=== PATIENT | female | born 1940 ===

== ENCOUNTER 2016-11-23 11:18 | Emergency (ER) | payer MEDICARE, MEDICAID ==
[2016-11-23 11:28] VITALS: O2SAT 99
[2016-11-23 11:31] VITALS: TEMP 98.6
[2016-11-23 12:24] LABS: HEMATOCRIT 38.6 % (34.0-47.0); MEAN CELL VOLUME 90.1 fl (81.0-99.0); MEAN CORPUSCULAR HEMOGLOBIN 29.5 pg (27.0-31.0); MEAN CORPUSCULAR HGB CONC 32.7 g/dL (33.0-37.0); RED CELL DISTRIBUTION WIDTH 15.3 % (11.5-14.5); WHITE BLOOD COUNT 11.9 K/uL (4.8-10.8)
[2016-11-23 12:36] LABS: CALCIUM 9.4 mg/dL (8.4-10.2); POTASSIUM 4.7 MMOL/L (3.6-5.0)
--- NOTE | 2016-11-23 12:40 | RAD ---
PROCEDURE: Left shoulder dated 11/23/2016 HISTORY: Shoulder pain COMPARISON: Comparison made with prior shoulder radiographs left shoulder radiographs 10/25/2016 TECHNIQUE: Single AP view of the left shoulder performed. FINDINGS: No evidence of acute displaced fracture nor dislocation. The osseous structures appear intact. Minimal degenerative changes left acromioclavicular and glenohumeral joints. Note made of left apical pleural thickening. IMPRESSION: No acute fracture seen. Minor DJD as above.
--- NOTE | 2016-11-23 13:23 | RAD ---
PROCEDURE: CHEST RADIOGRAPH, 1 VIEW HISTORY: chest pain radiating to shoulder COMPARISON: 01/08/2015. FINDINGS: LUNGS: The lungs are well inflated and clear. PLEURA: No pneumothorax or pleural fluid seen. CARDIOVASCULAR: The heart is normal in size. Atherosclerotic aortic arch calcifications are present. OSSEOUS STRUCTURES: No significant abnormalities. VISUALIZED UPPER ABDOMEN: Normal. OTHER FINDINGS: None. IMPRESSION: No active pulmonary disease.
--- NOTE | 2016-11-23 13:51 | ED PDOC ---
HPI: General Adult Time Seen by Provider: 11/23/16 11:46 Chief Complaint (Nursing): Upper Extremity Problem/Injury Chief Complaint (Provider): left shoulder pain History Per: Family (son) History/Exam Limitations: language barrier, other (dementia) Onset/Duration Of Symptoms: Intermittent Episodes Have you had recent travel within the past 21 days to any of the following countries: [place], [place], [place] or [place]?: No Current Symptoms Are (Timing): Better Severity: None Pain Scale Rating Of: 0 Additional Complaint(s): 75 y/o female with documented pmhx of dementia, DM, HTN, COPD, seen at bedside in the ED for left shoulder pain. Patient was brought by EMS to the ED for pain radiating to left shoulder. Patient is unable to give thorough past medical history or answer questions pertaining to physical examination. Patient is able to state her name but unable to answer questions as to what day of the week it is, what month it is, where she came from, etc. Patient states that she is unaware of why she was brought to the ED. Patient denies any pain in her shoulders. Patient denies any falls, or trauma to the area. Patient denies any other complaints at this time. She denies n/f/v/c/d/sob. Patient's son arrived at bedside and states that his mother has dementia and she is not in any current pain or distress. Pmhx: DM, HTN, COPD, Dementia Pshx: none FH: unknown SH: 1/2 ppd smoker x 30 years, quit 3 weeks ago, denies etoh use All: NKDA Past Medical History Vital Signs: Last Vital Signs Temp 98.6 F 11/23/16 11:31 Pulse 68 11/23/16 13:45 Resp 14 11/23/16 13:45 BP 124/78 11/23/16 13:45 Pulse Ox 99 11/23/16 14:26 - Medical History PMH: COPD, Diabetes, HTN, Migraine Denies: Hepatitis, HIV, Seizures, Sexually Transmitted Disease - Family History Family History: States: Unknown Family Hx - Home Medications Home Medications: Ambulatory Orders Medication Instructions Recorded Naproxen [Naprosyn Tab] 250 mg PO BID #14 tab 11/23/16 - Allergies Allergies/Adverse Reactions: Allergies Allergy/AdvReac Type Severity Reaction Status Date / Time No Known Allergies Allergy Verified 01/30/15 15:52 Review of Systems Constitutional: Negative for: Fever, Chills, Sweats, Weakness Cardiovascular: Negative for: Chest Pain, Palpitations, Orthopnea Respiratory: Negative for: Cough, Shortness of Breath Gastrointestinal: Negative for: Nausea, Vomiting, Abdominal Pain, Diarrhea, Constipation Musculoskeletal: Positive for: Shoulder Pain, Back Pain (son states that she sometimes complains of shoulder and back pain) Neurological: Positive for: Confusion, Altered Mental Status (dementia). Negative for: Weakness Physical Exam - Physical Exam Appears: Positive for: Well, Non-toxic, No Acute Distress Head Exam: Positive for: NORMAL INSPECTION Skin: Positive for: Normal Color Eye Exam: Positive for: Normal appearance, EOMI, PERRL Neck: Positive for: Normal, Painless ROM Cardiovascular/Chest: Positive for: Regular Rate, Rhythm, Chest Non Tender Respiratory: Positive for: Decreased Breath Sounds Gastrointestinal/Abdominal: Positive for: Normal Exam. Negative for: Soft, Tenderness, Distended Back: Positive for: Normal Inspection Neurologic/Psych: Positive for: Alert, Other (dementia) - Laboratory Results Result Diagrams: 11/23/16 12:20 11/23/16 12:20 - ECG O2 Sat by Pulse Oximetry: 99 Medical Decision Making Medical Decision Making: Patient seen and evaluated at bedside Vital signs stable Plan: Chest X ray- no active pulmonary disease L shoulder X ray- no acute fracture or dislocation, degenerative arthritic changes noted CBC BMP EKG Treatment: discussed treatment plan with son, son accepts full responsibility to take patient home, patient to follow up with PCP patient to be discharged with naprosyn PO prn shoulder pain Disposition - Clinical Impression Clinical Impression: Dementia, Arthritis - Disposition Disposition Time: 14:29 Condition: GOOD Additional Instructions: See primary doctor for followup. Discharged to care of son for safety and monitoring at home. Prescriptions: Naproxen [Naprosyn Tab] 250 mg PO BID #14 tab Instructions: Naproxen (By mouth), Dementia (ED), Arthralgia (ED) Forms: [employer] ([place]) Print Language: CONGOLESE
[2016-11-23 13:53] VITALS: BP 124/78; PULSE 68; RESP 14
== END 2016-11-23 13:53 | disposition home or self-care (01) ==
LOC: H.ER 11:18
DX: M19.012 Primary osteoarthritis, left shoulder (principal); F03.90 Unspecified dementia, unspecified severity, without behavioral disturbance, psychotic disturbance, mood disturbance, and anxiety; E11.9 Type 2 diabetes mellitus without complications; I10 Essential (primary) hypertension; J44.9 Chronic obstructive pulmonary disease, unspecified

== ENCOUNTER 2017-11-06 07:31 | Day surgery (SDC) | payer MEDICARE, MEDICAID ==
[2017-10-31 11:16] VITALS: BMI 28.3
[2017-11-06] MEDS ORDERED: Tetracaine 0.5% Ophth 2 ML BOTTLE ONE (07:56)
[2017-11-06] MEDS ORDERED: CA CL/K CL/NA CL 500 ML IR ONE (07:57)
[2017-11-06] MEDS ORDERED: EPINEPHrine 1 mg/ml (1:1000) Inj ONE (07:57)
[2017-11-06] MEDS ORDERED: Lidocaine 1% 20 MG/2 ML PF AMP ONE (07:57)
[2017-11-06] MEDS ORDERED: Chondroitin/Hyaluronate Opth Syringe KIT (0.55 ml-0.5 ml) IO ONE (07:58)
[2017-11-06] MEDS ORDERED: Carbachol 0.01% IO ONE (07:58)
[2017-11-06] MEDS ORDERED: STERILE IRRIGATING SOLUTION 45 ML IR ONE (07:58)
[2017-11-06] MEDS ORDERED: Phenylephrine 2.5% Opht Soln OS ONE ×2 (08:06→08:15)
[2017-11-06] MEDS ORDERED: Flurbiprofen 0.03% Opht SOLN OS ONE ×2 (08:15)
[2017-11-06] MEDS ORDERED: Tropicamide 1% Opht 150 DROP/15 ML OS ONE ×2 (08:15)
[2017-11-06] MEDS ORDERED: Lactated Ringer's 1,000 ML IV ONE (08:30)
[2017-11-06] MEDS ORDERED: Midazolam 2 MG/2 ML VIAL ONE (10:46)
[2017-11-06] MEDS ORDERED: Povidone Iodine 5% Opht SOLUTION OS ONE (11:10)
[2017-11-06] MEDS: Maxitrol Opht Susp ONE ×2 (11:31→11:33)
[2017-11-06] MEDS: Pilocarpine 1% Opht Soln ONE ×2 (11:31→11:33)
[2017-11-06 12:23] VITALS: RESP 18
[2017-11-06 12:40] VITALS: TEMP 97.6
[2017-11-06 13:38] VITALS: BP 131/64; PULSE 64; O2SAT 98
--- NOTE | 2017-11-27 19:23 | OP ---
PROCEDURE DATE: 11/06/2017 SURGEON: KEVIN BERMAN MD ANESTHESIOLOGIST: SYED LINDSEY MD ANESTHESIA: LOCAL / IV SEDATION PREOPERATIVE DIAGNOSIS: CATARACT LEFT EYE. POSTOPERATIVE DIAGNOSIS: CATARACT LEFT EYE. OPERATION: CLEAR CORNEAL PHACOEMULSIFICATION WITH LENS IMPLANT LEFT EYE. PREPARATION AND PROCEDURE: After the patient was prepped and draped in the usual manner for sterile ophthalmic surgery, local IV sedation was administered ; eye seals were applied to the upper and lower lid margins and an adult wire lid speculum was placed within the lids. Under microsurgical control, a two- step clear corneal incision was made into the anterior chamber. The initial incision was perpendicular to the corneal plane. The second incision with the keratome was placed at a 45-degree angle to the first incision. One cc of one percent Xylocaine MPF was instilled into the anterior chamber to achieve proper intraocular anesthesia. At this time, the Viscoelastic was injected into the anterior chamber for protection of the endothelium and for maintenance of the chamber depth. A 360-degree continuous curvilinear capsulorrhexis was performed using a pre-bent 25-gauge needle. Hydrodissection and hydrodelineation were performed using a Cortez cannula and balanced salt solution. Utilizing the tip of the Cortez cannula, the nucleus was rotated freely within the capsular bag. A standard one-handed phacoemulsification was utilized at this time for sculpting and rotating of the nucleus. The nucleus was fragmented in its entirety and aspirated without any consequence. A standard I&A was carried out for the residual cortical material. No residual material was noted within the capsular bag. The posterior capsule was noted to be clear. Additional Viscoelastic was injected into the capsular bag in preparation for lens implantation. After this has been satisfactorily achieved the intraocular lens injected through the corneal incision into the capsular bag. The intraocular lens was manipulated until it was properly oriented and the Viscoelastic was evacuated from the capsular bag and anterior chamber. The anterior chamber was reformed with balanced salt solution. The corneal incision was irrigated with BSS. The intraocular pressure was found to be within normal limits. This terminated the procedure. The speculum and lid drapes were removed. TobraDex ophthalmic suspension and Pilocarpine 1% drops one drop was applied to the eye. POSTOPERATIVE CONDITION: The patient was brought to the Post anesthesia Recovery area with stable vital signs. DKEVIN ADAN MD
== END 2017-11-06 13:30 | disposition home or self-care (01) ==
LOC: H.OPSURG 07:31
PROVIDERS: ATTEND Ophthalmology
DX: H26.9 Unspecified cataract (principal)
CPT/HCPCS: 66984; 82948; J0171; J2250; J3010; J7120; V2632

== ENCOUNTER 2017-12-04 08:27 | Day surgery (SDC) | payer MEDICARE, MEDICAID ==
[2017-10-31 10:40] VITALS: BMI 28.3
[2017-12-04] MEDS ORDERED: Maxitrol Opht Susp ONE (08:54)
[2017-12-04] MEDS ORDERED: EPINEPHrine 1 mg/ml (1:1000) Inj ONE (08:55)
[2017-12-04] MEDS ORDERED: CA CL/K CL/NA CL 500 ML IR ONE (08:55)
[2017-12-04] MEDS ORDERED: Tetracaine 0.5% Ophth 2 ML BOTTLE ONE (08:55)
[2017-12-04] MEDS ORDERED: Povidone Iodine 5% Opht SOLUTION ONE (08:56)
[2017-12-04] MEDS ORDERED: Chondroitin/Hyaluronate Opth Syringe KIT (0.55 ml-0.5 ml) IO ONE ×2 (08:56→12:54)
[2017-12-04] MEDS ORDERED: STERILE IRRIGATING SOLUTION 15 ML IR ONE (08:56)
[2017-12-04] MEDS ORDERED: STERILE IRRIGATING SOLUTION 30 ML IR ONE (08:56)
[2017-12-04 09:37] VITALS: RESP 18
[2017-12-04] MEDS ORDERED: Phenylephrine 2.5% Opht Soln OD ONE (10:00)
[2017-12-04] MEDS ORDERED: Flurbiprofen 0.03% Opht SOLN OD ONE (10:00)
[2017-12-04] MEDS ORDERED: Tropicamide 1% Opht 150 DROP/15 ML OD ONE (10:00)
[2017-12-04] MEDS ORDERED: Lactated Ringer's 1,000 ML IV ONE (10:15)
[2017-12-04] MEDS ORDERED: Midazolam 2 MG/2 ML VIAL ONE (12:37)
[2017-12-04] MEDS ORDERED: Lidocaine 1% 20 MG/2 ML PF AMP EP ONE (12:50)
[2017-12-04] MEDS ORDERED: BSS 15 ML SOL IR ONE ×2 (12:55→12:57)
[2017-12-04] MEDS: Carbachol 0.01% IO ONE ×2 (12:56→12:58)
[2017-12-04] MEDS ORDERED: Maxitrol Opht Susp OD ONE ×2 (12:57→13:02)
[2017-12-04] MEDS: Pilocarpine 1% Opht Soln ONE ×2 (12:57→13:00)
[2017-12-04 13:58] VITALS: O2SAT 98
[2017-12-04 14:10] VITALS: BP 119/55; PULSE 63; TEMP 97.4
--- NOTE | 2017-12-05 07:31 | OP ---
PROCEDURE DATE: 12/04/2017 SURGEON: KEVIN BERMAN MD ANESTHESIOLOGIST: YANY PINZON MD ANESTHESIA: LOCAL / IV SEDATION PREOPERATIVE DIAGNOSIS: CATARACT RIGHT EYE. POSTOPERATIVE DIAGNOSIS: CATARACT RIGHT EYE. OPERATION: CLEAR CORNEAL PHACOEMULSIFICATION WITH LENS IMPLANT RIGHT EYE. PREPARATION AND PROCEDURE: After the patient was prepped and draped in the usual manner for sterile ophthalmic surgery, local IV sedation was administered ; eye seals were applied to the upper and lower lid margins and an adult wire lid speculum was placed within the lids. Under microsurgical control, a two- step clear corneal incision was made into the anterior chamber. The initial incision was perpendicular to the corneal plane. The second incision with the keratome was placed at a 45-degree angle to the first incision. One cc of one percent Xylocaine MPF was instilled into the anterior chamber to achieve proper intraocular anesthesia. At this time, the Viscoelastic was injected into the anterior chamber for protection of the endothelium and for maintenance of the chamber depth. A 360-degree continuous curvilinear capsulorrhexis was performed using a pre-bent 25-gauge needle. Hydrodissection and hydrodelineation were performed using a Cortez cannula and balanced salt solution. Utilizing the tip of the Cortez cannula, the nucleus was rotated freely within the capsular bag. A standard one-handed phacoemulsification was utilized at this time for sculpting and rotating of the nucleus. The nucleus was fragmented in its entirety and aspirated without any consequence. A standard I&A was carried out for the residual cortical material. No residual material was noted within the capsular bag. The posterior capsule was noted to be clear. Additional Viscoelastic was injected into the capsular bag in preparation for lens implantation. After this has been satisfactorily achieved the intraocular lens injected through the corneal incision into the capsular bag. The intraocular lens was manipulated until it was properly oriented and the Viscoelastic was evacuated from the capsular bag and anterior chamber. The anterior chamber was reformed with balanced salt solution. The corneal incision was irrigated with BSS. The intraocular pressure was found to be within normal limits. This terminated the procedure. The speculum and lid drapes were removed. TobraDex ophthalmic suspension and Pilocarpine 1% drops one drop was applied to the eye. POSTOPERATIVE CONDITION: The patient was brought to the Post anesthesia Recovery area with stable vital signs. DKEVIN ADAN MDD
== END 2017-12-04 14:28 | disposition home or self-care (01) ==
LOC: H.OPSURG 08:27
PROVIDERS: ATTEND Ophthalmology
DX: H26.9 Unspecified cataract (principal)
CPT/HCPCS: 66984; 82948; J0171; J2250; J7120; V2632

== ENCOUNTER 2018-08-05 17:06 | Emergency (ER) | payer MEDICARE, MEDICAID ==
[2018-08-05 17:06] VITALS: BMI 28.3
[2018-08-05 17:14] VITALS: BP 110/63; PULSE 95; RESP 18; TEMP 98.3; O2SAT 97
--- NOTE | 2018-08-05 18:36 | ED PDOC ---
HPI: Altered Mental Status Time Seen by Provider: 08/05/18 18:15 Chief Complaint (Nursing): Altered Mental Status Additional Complaint(s): 77 y/o F with a PMHx of dementia, HTN and DM2 is brought by her son due to confusion and aggressive behavior today around 12pm. Son reports that he received a call from homemaker who reported to him that pt became aggressive and kept saying that she wanted to go home. Son reports this is the first time she becomes this aggressive. Pt was recently started on Mirtazapine by PCP for improvement of mood. No recent trauma, no recent travel. Pt denies fever, chills, headache, dizziness, chest pain, SOB, abdominal pain, N/V/D. PCP: Dr Brian Turner NKDA Meds: Mirtazapine 15mg PO HS, Metformin 500mg PO BID, Telmisartan 40mg PO daily, Rosuvastatin 20mg PO daily, Donezepil 10mg PO daily, Memantine 28mg PO daily. PMHx: HTN, DM2, and dementia SHx: lives with son, has a homemaker. Never tobacco, no alcohol and no rec drugs. Past Medical History Vital Signs: Last Vital Signs Temp 98.3 F 08/05/18 17:12 Pulse 95 H 08/05/18 17:12 Resp 18 08/05/18 17:12 BP 110/63 08/05/18 17:12 Pulse Ox 97 08/05/18 17:12 - Medical History PMH: Arthritis, COPD, Dementia, Diabetes, HTN, Migraine Denies: Hepatitis, HIV, Chronic Kidney Disease, Seizures, Sexually Transmitted Disease - Family History Family History: States: Unknown Family Hx - Home Medications Home Medications: Ambulatory Orders Medication Instructions Recorded Glimepiride [Amaryl] 4 mg PO DAILY 11/06/17 Olmesartan Medoxomil [Benicar] 5 mg PO DAILY 11/06/17 metFORMIN [glucOPHAGE] 500 mg PO BID 11/06/17 - Allergies Allergies/Adverse Reactions: Allergies Allergy/AdvReac Type Severity Reaction Status Date / Time No Known Allergies Allergy Verified 08/05/18 17:13 Review of Systems Constitutional: Negative for: Fever, Chills Eyes: Negative for: Pain ENT: Negative for: Ear Pain, Ear Discharge, Nose Congestion Cardiovascular: Negative for: Chest Pain, Palpitations, Orthopnea Respiratory: Negative for: Cough, Shortness of Breath, Hemoptysis Gastrointestinal: Negative for: Nausea, Vomiting, Abdominal Pain, Diarrhea, Constipation Genitourinary Female: Negative for: Dysuria, Frequency, Incontinence, Hematuria Musculoskeletal: Negative for: Neck Pain, Back Pain Skin: Negative for: Rash, Lesions Neurological: Positive for: Confusion, Altered Mental Status. Negative for: Weakness, Change in Speech, Seizures, Headache, Dizziness Physical Exam - Physical Exam Appears: Positive for: Well, No Acute Distress Head Exam: Positive for: ATRAUMATIC, NORMAL INSPECTION Skin: Positive for: Normal Color, Warm Eye Exam: Positive for: EOMI, PERRL Neck: Positive for: Normal, Painless ROM, Supple Cardiovascular/Chest: Positive for: Regular Rate, Rhythm. Negative for: JVD, Murmur Respiratory: Positive for: Normal Breath Sounds. Negative for: Decreased Breath Sounds, Accessory Muscle Use, Crackles Gastrointestinal/Abdominal: Positive for: Normal Exam, Bowel Sounds, Soft. Negative for: Tenderness, Distended, Guarding Extremity: Positive for: Normal ROM. 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 Negative for: Oriented (to place and time.), Gait, Lethargic - ECG O2 Sat by Pulse Oximetry: 97 Medical Decision Making Medical Decision Makin:50 --CBC, CMP, urinalysis and URine Culture ordered. --Chest X-ray, EKG were ordered. --Crisis team evaluation ordered. 19:00 --Will sign out to Dr Perez. --Results pending. Disposition - Clinical Impression Clinical Impression: Altered mental status - Disposition Disposition: Transfer of Care Disposition Time: 19:10 Condition: IMPROVED Instructions: Delirium (Confusion) Forms: [employer] ([place])
[2018-08-05 19:05] LABS: BASO # 0.1 K/uL (0.0-0.2); BASO % 0.9 % (0.0-2.0); EOS # 0.1 K/uL (0.0-0.7); HEMOGLOBIN 11.5 g/dL (12.0-16.0); LYMPH # 2.5 K/uL (1.0-4.3); LYMPH % 20.2 % (20.0-40.0); MEAN CELL VOLUME 89.9 fl (81.0-99.0); MEAN CORPUSCULAR HEMOGLOBIN 28.9 pg (27.0-31.0); MEAN CORPUSCULAR HGB CONC 32.2 g/dL (33.0-37.0); MEAN PLATELET VOLUME 8.4 fl (7.2-11.7); MONO # 0.8 K/uL (0.0-0.8); MONO % 6.6 % (0.0-10.0); NEUT # 8.6 K/uL (1.8-7.0); NEUT % 71.3 % (50.0-75.0); RBC 3.97 Mil/uL (3.80-5.20); RED CELL DISTRIBUTION WIDTH 15.7 % (11.5-14.5); WHITE BLOOD COUNT 12.1 K/uL (4.8-10.8)
--- NOTE | 2018-08-05 19:21 | ED PDOC ---
- Laboratory Results Result Diagrams: 08/05/18 18:58 - ECG O2 Sat by Pulse Oximetry: 97 (RA) Pulse Ox Interpretation: Normal Medical Decision Making Medical Decision Making: Time: Initial Impression: Initial Plan: 1899 Pending workup in crisis evaluation Scribe Attestation: Documented by Isaac Hanson, acting as a scribe for Dave Toledo MD. Provider Scribe Attestation: All medical record entries made by the Scribe were at my direction and personally dictated by me. I have reviewed the chart and agree that the record accurately reflects my personal performance of the history, physical exam, medical decision making, and the department course for this patient. I have also personally directed, reviewed, and agree with the discharge instructions and disposition. Disposition - Clinical Impression Clinical Impression: Altered mental status - Disposition Condition: IMPROVED Instructions: Delirium (Confusion) Forms: [employer] (Niuean)
[2018-08-05 19:31] LABS: ALB/GLOB RATIO 1.5 (1.0-2.1); ALBUMIN 4.6 g/dL (3.5-5.0); CALCIUM 10.1 mg/dL (8.4-10.2)
[2018-08-05] MEDS ORDERED: Risperidone M tab 1 MG PO ONE (20:05)
[2018-08-05] MEDS ORDERED: Risperidone M tab 1 MG PO STA (20:08)
--- NOTE | 2018-08-05 21:20 | ED PDOC ---
- Laboratory Results Result Diagrams: 08/05/18 18:58 08/05/18 18:58 Lab Results: Total Bilirubin 0.3 mg/dl (0.2-1.3) 08/05/18 18:58 AST 35 U/L (14-36) 08/05/18 18:58 ALT 30 U/L (9-52) 08/05/18 18:58 Alkaline Phosphatase 82 U/L (38-126) 08/05/18 18:58 Total Protein 7.7 G/DL (6.3-8.2) 08/05/18 18:58 Albumin 4.6 g/dL (3.5-5.0) 08/05/18 18:58 Globulin 3.1 gm/dL (2.2-3.9) 08/05/18 18:58 Albumin/Globulin Ratio 1.5 (1.0-2.1) 08/05/18 18:58 - ECG O2 Sat by Pulse Oximetry: 97 (RA) Pulse Ox Interpretation: Normal Medical Decision Making Medical Decision Makin Patient was signed out to me pending labs and evaluation [id number] Patient was evaluated by crisis, labs indicated no significant abnormalities, and family has been advised to discontinue Donepezil and follow up with PMD. Patient was diagnosed with dementia with behavioral disturbance. Her condition is stable and was discharged home in companty of her son and daughter. Scribe Attestation: Documented by Isaac Hanson, acting as a scribe for Dave Toledo MD. Provider Scribe Attestation: All medical record entries made by the Scribe were at my direction and personally dictated by me. I have reviewed the chart and agree that the record accurately reflects my personal performance of the history, physical exam, medical decision making, and the department course for this patient. I have also personally directed, reviewed, and agree with the discharge instructions and disposition. Disposition - Clinical Impression Clinical Impression: Altered mental status - POA Present On Arrival: None - Disposition Disposition: Routine/Home Disposition Time: 21:00 Condition: IMPROVED Instructions: Dementia (DC) Forms: [employer] (British) Print Language: TELUGU
[2018-08-06] MEDS ORDERED: Risperidone M tab 1 MG PO SCH (09:00)
--- NOTE | 2018-08-06 09:50 | CARD ---
APPROVED REPORT Date of service: 08/05/2018 EKG Measurement Heart [id number] <Conclusion> Normal sinus rhythm Low voltage QRS Borderline ECG
--- NOTE | 2018-08-06 13:42 | RAD ---
Date of service: 08/05/2018 HISTORY: agitation COMPARISON: 10/31/2017. FINDINGS: LUNGS: The lungs are hyperinflated and there is peribronchial thickening with chronic changes in both lungs. No focal consolidation. PLEURA: No pleural effusions or pneumothorax. CARDIOVASCULAR: The heart is normal in size. There are aortic atherosclerotic calcifications present. OSSEOUS STRUCTURES: Within normal limits for the patient's age. VISUALIZED UPPER ABDOMEN: Normal. OTHER FINDINGS: None. IMPRESSION: No active pulmonary disease. COPD.
== END 2018-08-05 21:24 | disposition home or self-care (01) ==
LOC: H.ER 17:06
DX: R41.82 Altered mental status, unspecified (principal); E11.9 Type 2 diabetes mellitus without complications; F03.91 Unspecified dementia, unspecified severity, with behavioral disturbance; I10 Essential (primary) hypertension; J44.9 Chronic obstructive pulmonary disease, unspecified; Z79.84 Long term (current) use of oral hypoglycemic drugs; Z79.899 Other long term (current) drug therapy